=== PATIENT | male | born 1955 | race Caucasian/White ===

== ENCOUNTER → 2020-04-19 | Outpatient (CLI) | payer MEDICARE, MEDICAID ==
[~2020-04-19] MED LIST: ASPI-1158 MT; SIMV40TA2 MT
== END | disposition home or self-care (01) ==
LOC: LAB 10:40
PROVIDERS: ATTEND Specialist
DX: Z20.828 Contact with and (suspected) exposure to other viral communicable diseases (principal)
CPT/HCPCS: 87426

== ENCOUNTER → 2024-07-07 | Outpatient (CLI) | payer MEDICARE, MEDICAID ==
[~2024-07-07] MED LIST changes: -ASPI-1158 MT; +ASPI-1406 MT; +SIMV-345 MT; -SIMV40TA2 MT
== END | disposition home or self-care (01) ==
LOC: RAD 10:15
PROVIDERS: ATTEND Specialist
DX: R05.9 Cough, unspecified (principal)
CPT/HCPCS: 71046